=== PATIENT | female | born 1980 | race Caucasian/White ===

== ENCOUNTER 2018-12-12 16:34 | Emergency (ER) | payer OTHER ==
[~2018-12-12] VITALS: Ht 162.6 cm; Wt 77.6 kg
[~2018-12-12 16:34] MED LIST: HYDR-4011 PO; MAG-19 PO; NITR-58 PO; OMEP20CA16 PO; OMEP40CA3 PO; ONDA4TAB14 PO
[2018-12-12 17:04] VITALS: BP 118/60; PULSE 89; RESP 16; Ht 162.6 cm; Wt 77.6 kg
[2018-12-12] MEDS ORDERED: NAPR-985 PO (19:19)
--- NOTE | 2018-12-12 19:21 | ERD ---
ER Documentation Chief Complaint Chief Complaint SHARP LOWER LT CHEST WALL PAIN WITH DEEP BREATHING HPI 38-year-old female with no reported past medical surgical history who presents with complaint of left chest wall/rib cage pain. Patient states symptoms worse with deep venous inspiration. She denies any history of fall or trauma to the area. Denies any personal history of MA, family history of cardiac disease or early cardiac , shortness of breath, dyspnea, dizziness, lightheadedness, fever, chills, recent illness, nausea, vomiting, diarrhea, abdominal pain, urinary symptoms. ROS All systems reviewed and are negative except as per history of present illness. Medications Home Meds Active Scripts Naproxen* (Naprosyn*) 500 Mg Tablet, 500 MG PO BID PRN for PAIN AND/OR INFLAMMATION, #30 TAB Prov:PEDRO PRATT PA-C 12/12/18 Magaldrate/Simethicone* (Mylanta*) 355 Ml Susp, 30 ML PO QID PRN for GASTROINTESTINAL UPSET, #1 BOTTLE Prov:CHRISTINE DELUNA NP 04/19/16 Omeprazole* (Omeprazole*) 20 Mg Capsule., 20 MG PO DAILY, #30 Prov:CHRISTINE DELUNA NP 04/19/16 Ondansetron (Ondansetron Odt) 4 Mg Tab.rapdis, 4 MG PO Q8 PRN for NAUSEA AND/OR VOMITING, #30 TAB Prov:CHRISTINE DELUNA NP 04/19/16 Hydrocodone/Acetaminophen (Gentry 5-325 Tablet) 1 Each Tablet, 1 TAB PO Q6H PRN for PAIN, #20 TAB Prov:CHRISTINE DELUNA NP 04/19/16 Nitrofurantoin Monohyd Macrocr* (Macrobid*) 100 Mg Capsr, 100 MG PO BID for 7 Days, CAP Prov:ABDIEL MICHELLE PA-C 01/09/16 Omeprazole* (Prilosec*) 40 Mg Capsule., 40 MG PO DAILY, #30 CAP Prov:ABDIEL MICHELLE PA-C 01/09/16 Allergies Allergies: Coded Allergies: No Known Drug Allergy (Verified Allergy, Unknown, 01/09/16) PMhx/Soc History of Surgery: No Anesthesia Reaction: No Hx Neurological Disorder: No Hx Respiratory Disorders: No Hx Cardiac Disorders: No Hx Psychiatric Problems: No Hx Miscellaneous Medical Probl: No Hx Alcohol Use: No Hx Substance Use: No Hx Tobacco Use: No Smoking Status: Never smoker FmHx Family History: No diabetes, No coronary disease, No other Physical Exam Vitals Vital Signs Date Temp Pulse Resp B/P (MAP) Pulse Ox O2 O2 Flow FiO2 Time Delivery Rate 12/12/18 99.4 89 16 118/60 99 17:04 (79) Physical Exam I have reviewed the triage vital signs. Const: Well nourished, well developed, appears stated age Eyes: PERRL, no conjunctival injection HENT: NCAT, Neck supple without meningismus CV: RRR, Warm, well-perfused extremities, tenderness to left lower rib cage wall, no bruising or rashes noted RESP: CTAB, Unlabored respiratory effort GI: soft, non-tender, non-distended, no masses MSK: No gross deformities appreciated Skin: Warm, dry. No rashes Neuro: grossly non focal Psych: Appropriate mood and affect. Results 24 hrs Current Medications Medications Dose Sig/Mi Start Time Status Last (Trade) Ordered Route PRN Stop Time Admin Dose Reason Admin Ibuprofen 800 mg ONCE ONCE 12/12/18 12/12/18 (Motrin) PO 19:30 19:24 12/12/18 19:31 Procedures/MDM 38-year-old healthy female presents with complaint of chest wall pain. Symptoms likely secondary to bout of costochondritis. I have low suspicion for ca rdiopulmonary process wanting further emergent care or work-up. EKG mostly sinus rhythm without acute changes. Will discharge with NSAIDs. Strict return precautions explained in detail the patient. DISPOSITION PLAN: We discussed follow up with the patient's primary care doctor within 24 to 48 hours. Patient counseled regarding my diagnostic impression and care plan. Prior to discharge all questions answered. Pt agrees with treatment plan and understands strict return precautions. Precautionary instructions provided including instructions to return to the ER if not improving or for any worsening or changing symptoms or concerns. Disclaimer: Inadvertent spelling and grammatical errors are likely due to EHR/dictation software use and do not reflect on the overall quality of patient care. Also, please note that the electronic time recorded on this note does not necessarily reflect the actual time of the patient encounter. Departure Diagnosis: Primary Impression: Chest wall pain Condition: Stable Patient Instructions: Chest Wall Pain, Costochondritis Referrals: [facility] YOU HAVE RECEIVED A MEDICAL SCREENING EXAM AND THE RESULTS INDICATE THAT YOU DO NOT HAVE A CONDITION THAT REQUIRES URGENT TREATMENT IN THE EMERGENCY DEPARTMENT. FURTHER EVALUATION AND TREATMENT OF YOUR CONDITION CAN WAIT UNTIL YOU ARE SEEN IN YOUR DOCTORS OFFICE WITHIN THE NEXT 1-2 DAYS. IT IS YOUR RESPONSIBILITY TO MAKE AN APPOINTMENT FOR FOLOW-UP CARE. IF YOU HAVE A PRIMARY DOCTOR --you should call your primary doctor and schedule an appointment IF YOU DO NOT HAVE A PRIMARY DOCTOR YOU CAN CALL OUR PHYSICIAN REFERRAL HOTLINE AT IF YOU CAN NOT AFFORD TO SEE A PHYSICIAN YOU CAN CHOSE FROM THE FOLLOWING [facility] [id number] [facility]. [facility] [address] [facility] [facility] [address] [facility] [facility] [address] [facility]. [facility] [address] [facility] [facility]. [address] Additional Instructions: Call your primary care doctor TOMORROW for an appointment during the next 2-3 days.See the doctor sooner or return here if your condition worsens before your appointment time. PEDRO PRATT PA-C December 12, 2018 19:21
[2018-12-12] MEDS ORDERED: IBUPROFEN 800 MG TAB PO ONE (19:30)
== END 2018-12-12 19:28 | disposition home or self-care (01) ==
LOC: FTE 16:34
DX: R07.89 Other chest pain (principal)
CPT/HCPCS: Z7502; Z7610

== ENCOUNTER 2019-03-17 21:22 | Emergency (ER) | payer OTHER ==
[~2019-03-17] VITALS: Ht 162.6 cm; Wt 75.1 kg
[~2019-03-17 21:22] MED LIST changes: +BEN25 PO; +BUTA1CAP38 PO; +CEPH-443 PO; +IBUP800T48 PO; +MECL12.574 PO; +METO10TA92 PO; +NAPR-985 PO
[2019-03-17 21:39] VITALS: BP 121/58; PULSE 71; RESP 18; Ht 162.6 cm; Wt 75.1 kg
[2019-03-17] MEDS ORDERED: ONDANSETRON (ODT) 4 MG TAB ODT STA (23:10)
[2019-03-17] MEDS ORDERED: HYDROCODONE/APAP (5/325) TAB PO ONE (23:30)
== END 2019-03-18 01:28 | disposition home or self-care (01) ==
LOC: FTE 21:22
DX: N39.0 Urinary tract infection, site not specified (principal)
CPT/HCPCS: 70450; 81001; 81025; 87086; Z7502; Z7610